=== PATIENT | female | born 1985 | race African-American/Black ===

== ENCOUNTER 2019-01-05 13:45 | Emergency (ER) | payer SELFPAY ==
[~2019-01-05] VITALS: Ht 167.6 cm; Wt 50.5 kg
[2019-01-05 13:55] VITALS: BP 120/58; PULSE 67; RESP 16; Ht 167.6 cm; Wt 50.5 kg
== END 2019-01-05 15:42 | disposition left against medical advice (07) ==
LOC: FTE 13:45
DX: Z53.21 Procedure and treatment not carried out due to patient leaving prior to being seen by health care provider (principal)

== ENCOUNTER 2019-01-17 10:22 | Emergency (ER) | payer MEDICAID ==
[~2019-01-17] VITALS: Ht 167.6 cm; Wt 50.6 kg
[2019-01-17 10:25] VITALS: BP 113/68; PULSE 62; RESP 17; Ht 167.6 cm; Wt 50.6 kg
[2019-01-17] MEDS ORDERED: D-ME473S2 PO (10:34)
--- NOTE | 2019-01-17 10:36 | ERD ---
ER Documentation Chief Complaint Chief Complaint HEADACHE X3 WEEKS, NO DIZZINESS, NO N/V, NO INJURY HPI 33-year-old female is here complaining of a week of cough and congestion. Cough is dry and worse at night. She [place] that she would also like referrals to primary care. No fever. No hemoptysis or unplanned weight loss. Triage note states she is here for headache however her symptoms are URI symptoms and not headache related. ROS All systems reviewed and are negative except as per history of present illness. Medications Home Meds Active Scripts Dextromethorphan Hb-Promethazine Hcl* (Promethazine DM* Syrup) 473 Ml Syrup, 5 ML PO Q6 PRN for COUGH, #200 ML Prov:REJI PIERSON PA-C 01/17/19 FmHx Family History: No diabetes Physical Exam Vitals Vital Signs Date Temp Pulse Resp B/P (MAP) Pulse Ox O2 O2 Flow FiO2 Time Delivery Rate 01/17/19 97.5 62 17 113/68 99 10:25 (83) Physical Exam INITIAL VITAL SIGNS: Reviewed by me GENERAL: Awake, alert and oriented x 4, well appearing, nontoxic, speaking in full sentences. No acute distress HEAD: Atraumatic NECK: Supple. No masses. Full range of motion. No meningismus. No midline tenderness. THROAT: No tonilar erythema or edema. No exudates. Uvula midline. No kissing tonsils. RESPIRATORY: Clear to auscultation bilaterally. Symmetric chest wall rise. No wheezing or rales. No accessory muscle use. CV: Regular rate and rhythm. No murmurs, rubs, or gallops. ABDOMEN: Soft, non-distended. Nontender. Negative Turner. Negative McBurneys point tenderness. No CVA tenderness bilaterally. No guarding. No rebound. Results 24 hrs Current Medications Medications Dose Sig/Darwin Start Time Status Last (Trade) Ordered Route PRN Stop Time Admin Dose Reason Admin 10 mg ONCE ONCE 01/17/19 Dexamethasone PO 11:00 01/17/19 (Decadron) 11:01 Procedures/MDM This is an otherwise healthy, well appearing patient presenting with uncomplicated URI symptoms, likely viral in etiology. Patient is non-toxic and well hydrated. I have low suspicion for pneumonia or significant bacterial disease. Patient will be treated with outpatient supportive care; no indications for antibiotics at this time. Discharge instructions have included return precautions and close follow up with PMD. Departure Diagnosis: Primary Impression: URI (upper respiratory infection) Condition: Stable Patient Instructions: Preventing Common Respiratory Infections Referrals: [facility] YOU HAVE RECEIVED A MEDICAL SCREENING EXAM AND THE RESULTS INDICATE THAT YOU DO NOT HAVE A CONDITION THAT REQUIRES URGENT TREATMENT IN THE EMERGENCY DEPARTMENT. FURTHER EVALUATION AND TREATMENT OF YOUR CONDITION CAN WAIT UNTIL YOU ARE SEEN IN YOUR DOCTORS OFFICE WITHIN THE NEXT 1-2 DAYS. IT IS YOUR RESPONSIBILITY TO MAKE AN APPOINTMENT FOR FOLOW-UP CARE. IF YOU HAVE A PRIMARY DOCTOR --you should call your primary doctor and schedule an appointment IF YOU DO NOT HAVE A PRIMARY DOCTOR YOU CAN CALL OUR PHYSICIAN REFERRAL HOTLINE AT IF YOU CAN NOT AFFORD TO SEE A PHYSICIAN YOU CAN CHOSE FROM THE FOLLOWING [facility] [address] [facility] [address] [facility] [address] [facility] [address] [facility] [address] [facility] [facility] Additional Instructions: Call your primary care doctor TOMORROW for an appointment during the next 1-2 days.See the doctor sooner or return here if your condition worsens before your appointment time. REJI PIERSON PA-C Jan 17, 2019 10:36
[2019-01-17] MEDS ORDERED: DEXAMETHASONE 10 MG/ML 1 ML INJ PO ONE (11:00)
== END 2019-01-17 11:08 | disposition home or self-care (01) ==
LOC: FTE 10:22
DX: J06.9 Acute upper respiratory infection, unspecified (principal)
CPT/HCPCS: J1100; Z7502; 99283

== ENCOUNTER 2019-03-30 08:06 | Emergency (ER) | payer MEDICAID ==
[~2019-03-30] VITALS: Wt 59.1 kg
[~2019-03-30 08:06] MED LIST: BENZ-6 PO; D-ME473S2 PO; FLUT9.9S NASAL
[2019-03-30 08:12] VITALS: BP 135/81; PULSE 72; RESP 20
== END 2019-03-30 08:35 | disposition home or self-care (01) ==
LOC: FTE 08:06
DX: J06.9 Acute upper respiratory infection, unspecified (principal); F17.210 Nicotine dependence, cigarettes, uncomplicated
CPT/HCPCS: 99283